=== PATIENT | female | born 1965 | race American Indian/Alaskan Native ===

== ENCOUNTER 2016-08-31 06:01 | Day surgery (SDC) | payer BC ==
[2016-08-31] MEDS ORDERED: NACL BACTERIOSTATIC INFILTRATI ONE (06:33)
[2016-08-31] MEDS ORDERED: DILAUDID IV PRN (06:34)
[2016-08-31] MEDS ORDERED: PERCOCET 5/325 PO PRN (06:34)
[2016-08-31] MEDS ORDERED: ZOFRAN IV PRN (06:34)
--- NOTE | 2016-08-31 06:34 | Anesthesia Day of Surgery ---
Anesthesia Day of Surgery - Day of Surgery Patient Examined: Yes Patient H&P Reviewed: Yes Patient is NPO: Yes
--- NOTE | 2016-08-31 06:34 | Anesthesia Consultation ---
Anesthesia Consult and Med Hx Date of service: 08/31/16 - Airway Anesthetic Teeth Evaluation: Good ROM Head & Neck: Adequate Mental/Hyoid Distance: Adequate Mallampati Class: Class II Intubation Access Assessment: Probably Good - Pulmonary Exam CTA: Yes - Cardiac Exam Cardiac Exam: RRR - Pre-Operative Health Status ASA Pre-Surgery Classification: ASA2 Proposed Anesthetic Plan: General - Cardiovascular System Hx Hypertension: Yes (x 8 yrs) - Central Nervous System Hx Psychiatric Problems: No - Other Systems Hx Cancer: No
[2016-08-31] MEDS ORDERED: VERSED IV NR (07:00)
[2016-08-31] MEDS ORDERED: DIPRIVAN 10 MG/ML IV ONE (07:00)
[2016-08-31] MEDS ORDERED: NACL 0.9% 1000 ML 1,000 ML IV SCH (07:00)
[2016-08-31] MEDS ORDERED: PEPCID PO NR (07:00)
[2016-08-31] MEDS ORDERED: SUBLIMAZE ONE (07:00)
[2016-08-31] MEDS ORDERED: XYLOCAINE MPF 2% ONE (07:03)
[2016-08-31] MEDS ORDERED: MARCAINE-EPI/PF 0.5%-1:200,000 INFILTRATI ONE (07:48)
[2016-08-31] MEDS ORDERED: DECADRON ONE (08:20)
[2016-08-31] MEDS ORDERED: ZOFRAN ONE (08:20)
[2016-08-31] MEDS ORDERED: QUELICIN ONE (08:28)
[2016-08-31] MEDS ORDERED: MARCAINE 0.5% INFILTRATI ONE (08:42)
[2016-08-31] MEDS ORDERED: WATER FOR IRRIG STERILE IR ONE (08:43)
--- NOTE | 2016-08-31 08:59 | Discharge Summary ---
Short Stay Discharge Plan Activity: other (june d/c when stable. instruct change drain tube q8hrs and record drainage. keep dressings dry x 5 days. rto ) Weight Bearing Status: Partial Weight Bearing Diet: regular Wound: keep clean and dry Additional Instructions: aleve 1 po q 6-8hrs prn for breakthrough pain Follow up with: GREGG MIX MD [Staff Physician] - 09/02/16
[2016-08-31 12:06] VITALS: BP 119/78
--- NOTE | 2016-08-31 12:10 | Operative Report ---
PREOPERATIVE DIAGNOSIS: Upper subcutaneous back mass. POSTOPERATIVE DIAGNOSIS: Lipoma, pending final pathology. PROCEDURE: Excision of aforementioned mass. FINDINGS: Mass measured grossly approximately 6 x 8 cm and extended deep down to the muscle fascia. SURGEON: Mary Arvizu M.D. ANESTHESIA: General. ESTIMATED BLOOD LOSS: Minimal. DRAINS: One TLS drain left. COMPLICATIONS: None. DESCRIPTION OF PROCEDURE: The patient was taken to the operating room, prepped and draped in usual sterile fashion. The palpable mass had been outlined with a marking pencil. A 15 blade was used to incise skin and subcutaneous tissue. Brian hooks were used retract the skin. Needle tip electrocautery was used to dissect down to the mass itself. The mass appeared to be lipomatous in nature. Sharp and blunt dissections were used to dissect the lipomatous type mass away from the surrounding subcutaneous tissues and muscle fascia. The mass was removed en bloc. The specimen was sent to pathology. The area was irrigated copiously and dried. Hemostasis obtained with needle tip electrocautery. Once again, the area was irrigated copiously and dry. Checked for hemostasis and noted to be dry. A 10 TLS was left draining in the subcutaneous space. The drain was secured to the skin with a 2-0 silk suture. The subcutaneous was closed with interrupted 3-0 Vicryl suture. The skin was closed with running subcuticular 4-0 Vicryl. A 0.5% Marcaine with epinephrine was infiltrated over the fascia, subcutaneous, and skin for postoperative pain relief. Steri-Strips, fluffs and pressure dressings applied. The patient tolerated the procedure well and left the OR in stable condition. JOB# [id number] MIKAL/DELILAH
--- NOTE | 2016-08-31 13:13 | Post Anesthesia Evaluation ---
- Post Anesthesia Evaluation Patient Participated: Yes Airway Patent: Yes Stable Respiratory Function: Yes Nausea/Vomiting: No Temp > 96.8F: Yes Pain Manageable: Yes Adequeate Hydration: Yes Anesthesia Complications: No
== END 2016-08-31 10:30 | disposition home or self-care (01) ==
LOC: OR 06:01
PROVIDERS: ATTEND Surgery
DX: D17.1 Benign lipomatous neoplasm of skin and subcutaneous tissue of trunk (principal); I10 Essential (primary) hypertension; Z79.899 Other long term (current) drug therapy; Z91.041 Radiographic dye allergy status
CPT/HCPCS: 21933; 88304; J0330; J1100; J2250; J2405; J2704; J3010; J7030

== ENCOUNTER 2017-02-15 07:55 | Outpatient (CLI) | payer BC ==
--- NOTE | 2017-02-15 08:36 | XRay Report ---
ROUTINE CHEST, TWO VIEWS: HISTORY: +PPD. The trachea, heart, mediastinal contour, lung anton and bony thorax are unremarkable. IMPRESSION: Unremarkable chest x-ray.
[2017-02-15 08:37] LABS: Hematocrit 39.9 % (30.3-42.9); Hemoglobin 12.7 gm/dl (10.1-14.3); Mean Corpuscular HGB Conc 32 % (30-34); Mean Corpuscular Hemoglobin 27 pg (28-32); Mean Corpuscular Volume 84 fl (79-97); Platelet Count 265 K/mm3 (140-440); Red Blood Count 4.75 M/mm3 (3.65-5.03); Red Cell Distribution Width 13.8 % (13.2-15.2)
[2017-02-15 08:50] LABS: Alanine Aminotransferase 12 units/L (7-56); Albumin 4.1 g/dL (3.9-5); BUN/Creatinine Ratio 22; Blood Urea Nitrogen 13 mg/dL (7-17); Calcium 9.8 mg/dL (8.4-10.2); Hemolysis Index 7
== END 2017-02-15 07:56 | disposition home or self-care (01) ==
LOC: XRAY 07:55
PROVIDERS: ATTEND Internal Medicine
DX: Z00.01 Encounter for general adult medical examination with abnormal findings (principal); R76.11 Nonspecific reaction to tuberculin skin test without active tuberculosis; R79.89 Other specified abnormal findings of blood chemistry
CPT/HCPCS: 36415; 71046; 80053; 85027

== ENCOUNTER 2018-05-22 12:48 | Outpatient (CLI) | payer BC ==
--- NOTE | 2018-05-22 13:30 | XRay Report ---
XRAY RIGHT ANKLE THREE VIEWS: 05/22/18 12:48:00 CLINICAL: Ankle pain. FINDINGS: The ankle mortise is intact.No fracture or dislocation. Mild medial and lateral soft tissue swelling. No soft tissue air or foreign body. IMPRESSION: Nonspecific soft tissue swelling.
== END 2018-05-22 12:49 | disposition home or self-care (01) ==
LOC: XRAY 12:48
PROVIDERS: ATTEND Family Medicine
DX: R22.41 Localized swelling, mass and lump, right lower limb (principal); I10 Essential (primary) hypertension; Z90.710 Acquired absence of both cervix and uterus

== ENCOUNTER 2021-03-30 11:51 | Outpatient (CLI) | payer OTHER ==
--- NOTE | 2021-03-30 14:09 | Mammography Report ---
DIGITAL SCREENING MAMMOGRAM WITH CAD, 03/30/2021 CLINICAL INFORMATION / INDICATION: Routine screening mammography. SCREENING MAMMO TECHNIQUE: Digital bilateral 2D mammography was obtained in the craniocaudal and mediolateral obliqu e projections. This examination was interpreted with the benefit of Computer-Aided Detection analysis . COMPARISON: 11/04/08. FINDINGS: Breast Density: The breasts are almost entirely fatty. No dominant mass, suspicious calcifications, or architectural distortion in either breast. Mild benign-appearing nodularity bilaterally is stable. There are mild benign breast arterial calcifi cations bilaterally. No new abnormality is seen. IMPRESSION: No mammographic evidence of malignancy. Follow up recommendation: Routine yearly BI-RADS Category 2: BENIGN. A "normal" or negative report should not discourage follow up or biopsy of a clinically significant f inding. A written summary of these findings will be mailed to the patient. The patient will be entered into a mammography reporting system which will generate a reminder letter for the patient's next appointmen t at the appropriate interval. The [employer] recommends yearly mammograms starting at age 40 and continuing as l branden as a woman is in good health. Breast MRI is recommended for women with an approximate 20-25% or greater lifetime risk of breast cancer, including women with a strong family history of breast or ova emily cancer or who have been treated for Hodgkin's disease. Signer Name: Bassem Moraes MD Signed: 03/30/2021 2:05 PM Workstation Name: [employer]
== END 2021-03-30 11:52 | disposition home or self-care (01) ==
LOC: SPVWC 11:51
PROVIDERS: ATTEND Family Medicine
DX: Z12.31 Encounter for screening mammogram for malignant neoplasm of breast (principal); N64.89 Other specified disorders of breast
CPT/HCPCS: 77067